=== PATIENT | male | born 1955 | race Caucasian/White ===

== ENCOUNTER → 2025-03-01 11:13 | Outpatient (REF) | payer MEDICARE, SELFPAY | LOC: DHSLP 11:13 | PROVIDERS: ATTENDING PHYSICIAN Internal Medicine Critical Care Medicine; FAMILY PHYSICIAN Family Medicine | DX: G47.30 Sleep apnea, unspecified (principal); R06.83 Snoring | CPT/HCPCS: 95800 ==

== ENCOUNTER → 2025-03-21 11:46 | Outpatient (REF) | payer MEDICARE, SELFPAY | LOC: DHSLP 11:46 | PROVIDERS: ATTENDING PHYSICIAN Internal Medicine Critical Care Medicine; FAMILY PHYSICIAN Family Medicine | DX: G47.33 Obstructive sleep apnea (adult) (pediatric) (principal); G47.61 Periodic limb movement disorder | CPT/HCPCS: 95810 ==